=== PATIENT | female | born 1980 | race African-American/Black ===

== ENCOUNTER 2018-10-24 11:30 | Emergency (ER) | payer MEDICAID ==
[~2018-10-24] VITALS: Ht 167.6 cm; Wt 85.7 kg
[~2018-10-24 11:30] MED LIST: ALBUTEROL SULF8.5 GM INH; ATIVAN0.5 MG ORAL; AZITHROMYCIN250 MG ORAL; CIPRO500 MG PO; CLINDAMYCIN HC150 MG ORAL; IBUPROFEN600 MG ORAL; LEVAQUIN500 MG ORAL; NORCO 5-325 TA1 EACH ORAL; PREDNISONE20 MG ORAL; RANITIDINE HCL150 MG ORAL; TRAMADOL HCL50 MG ORAL; TYLENOL 8 HOUR650 M1 ORAL; VIGAMOX1 DROP LEFT EYE; ZYRTEC10 MG ORAL
[2018-10-24] MEDS ORDERED: NKM (11:40)
[2018-10-24 11:48] VITALS: BP 137/100
[2018-10-24] MEDS ORDERED: Isovue-300 100ml vial INJ PRN (12:15)
--- NOTE | 2018-10-24 12:46 | Emergency Room Report ---
History of Present Illness General Chief Complaint: Abdominal Pain Source: Patient Present Illness HPI Patient presents with different complaints initially complaining of diffuse abdominal cramping and pain with swelling reporting that she has previous history of diverticulitis Patient also later complains of left upper chest pain Left arm neuropathy Starting from the shoulder down to the hand This episode happened yesterday which has now resolved patient also later had experienced numbness to her left foot and lower leg That has also improved denies any headache denies any neck pain denies any other fall or trauma Patient also feels that intermittently her right knee gets swollen and improves with rest Denies any fevers denies any previous history of gonorrhea Allergies: Coded Allergies: HYDROCODONE (Verified Allergy, Unknown, ITCHING, 08/10/10) PENICILLINS (Verified Allergy, Unknown, AMBIGUOUS RXN, 08/13/10) Patient History Past Medical History: see triage record Reviewed Nursing Documentation: PMH: Agreed; PSxH: Agreed Nursing Documentation-PMH Hx Gastrointestinal Problems: Yes - diverticulitis Review of Systems All Other Systems: negative except mentioned in HPI Physical Exam Vital Signs Date Time Temp Pulse Resp B/P (MAP) Pulse Ox O2 Delivery O2 Flow Rate FiO2 10/24/18 11:38 98.4 87 15 126/86 (99) 99 Room Air Sp02 EP Interpretation: reviewed, normal General Appearance: well appearing, no apparent distress Head: normocephalic, atraumatic Eyes: bilateral eye PERRL, bilateral eye EOMI ENT: hearing grossly normal, normal pharynx, TMs + canals normal, uvula midline Neck: full range of motion, supple, no meningismus, no bony tend Respiratory: lungs clear, normal breath sounds, no rhonchi, no respiratory distress, no retraction, no accessory muscle use Cardiovascular #1: normal peripheral pulses, regular rate, rhythm, no edema, no gallop, no JVD, no murmur Gastrointestinal: normal bowel sounds, non tender - Subjectively points diffusely, soft, no mass, no organomegaly, non-distended, no guarding, no hernia , no pulsatile mass, no rebound Genitourinary: no CVA tenderness Musculoskeletal: normal inspection Neurologic: oriented x3, responsive, 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, motor strength/ tone normal, sensory intact Psychiatric: mood/affect normal Skin: no rash Lymphatic: normal inspection, no adenopathy Medical Decision Making Diagnostic Impression: Primary Impression: Abdominal pain ER Course With the patient's history and examination, multiple differentials considered, including but not limited to , ectopic , ovarian torsion, gastritis, cholecystitis, pancreatitis, appendicitis During her stay patient also complained of left upper chest pain EKG is normal patient's blood work is at appropriate levels CT imaging did not show any obvious acute pathology patient remains comfortable throughout her stay There are other nonspecific complaints that she has a right knee swelling and left arm neuropathy at this time my clinical evaluation does not reveal any obvious acute pathology and patient stable for close outpatient follow-up Labs Test 10/24/18 12:50 White Blood Count 7.3 K/UL (4.8-10.8) Red Blood Count 3.76 M/UL (4.20-5.40) Hemoglobin 12.0 G/DL (12.0-16.0) Hematocrit 36.8 % (37.0-47.0) Mean Corpuscular Volume 98 FL (80-99) Mean Corpuscular Hemoglobin 32.0 PG (27.0-31.0) Mean Corpuscular Hemoglobin Concent 32.8 G/DL (32.0-36.0) Red Cell Distribution Width 12.3 % (11.6-14.8) Platelet Count 287 K/UL (150-450) Mean Platelet Volume 5.9 FL (6.5-10.1) Neutrophils (%) (Auto) 60.8 % (45.0-75.0) Lymphocytes (%) (Auto) 28.5 % (20.0-45.0) Monocytes (%) (Auto) 7.7 % (1.0-10.0) Eosinophils (%) (Auto) 2.1 % (0.0-3.0) Basophils (%) (Auto) 1.0 % (0.0-2.0) Urine Color Pale yellow Urine Appearance Clear Urine pH 7 (4.5-8.0) Urine Specific [place] 1.010 (1.005-1.035) Urine Protein Negative (NEGATIVE) Urine Glucose (UA) Negative (NEGATIVE) Urine Ketones Negative (NEGATIVE) Urine Blood Negative (NEGATIVE) Urine Nitrite Negative (NEGATIVE) Urine Bilirubin Negative (NEGATIVE) Urine Urobilinogen Normal MG/DL (0.0-1.0) Urine Leukocyte Esterase Negative (NEGATIVE) Urine HCG, Qualitative Negative (NEGATIVE) Sodium Level 140 MMOL/L (136-145) Potassium Level 4.4 MMOL/L (3.5-5.1) Chloride Level 108 MMOL/L (98-107) Carbon Dioxide Level 25 MMOL/L (21-32) Anion Gap 7 mmol/L (5-15) Blood Urea Nitrogen 10 mg/dL (7-18) Creatinine 0.8 MG/DL (0.55-1.30) Estimat Glomerular Filtration Rate > 60 mL/min (>60) Glucose Level 101 MG/DL (74-106) Calcium Level 8.6 MG/DL (8.5-10.1) Total Bilirubin 0.2 MG/DL (0.2-1.0) Aspartate Amino Transf (AST/SGOT) 12 U/L (15-37) Alanine Aminotransferase (ALT/SGPT) 14 U/L (12-78) Alkaline Phosphatase 61 U/L (46-116) Total Protein 6.8 G/DL (6.4-8.2) Albumin 3.4 G/DL (3.4-5.0) Globulin 3.4 g/dL Albumin/Globulin Ratio 1.0 (1.0-2.7) Lipase 67 U/L (73-393) EKG Diagnostic Results Rate: normal Rhythm: NSR ST Segments: no acute changes Rhythm Strip Diag. Results EP Interpretation: yes Rate: 60 Rhythm: NSR, no PVC's, no ectopy Chest X-Ray Diagnostic Results Chest X-Ray Diagnostic Results : Chest X-Ray Ordered: Yes # of Views/Limited/Complete: 1 View Indication: Chest Pain EP Interpretation: Yes Interpretation: no consolidation, no effusion, no pneumothorax Impression: No acute disease Electronically Signed by: Sara Ortiz DO CT/MRI/US Diagnostic Results CT/MRI/US Diagnostic Results : Impression CT abdomen pelvis no acute disease Last Vital Signs Date Time Temp Pulse Resp B/P (MAP) Pulse Ox O2 Delivery O2 Flow Rate FiO2 10/24/18 11:48 98.4 78 15 137/100 100 Room Air Status: improved Disposition: HOME, SELF-CARE Condition: Improved Scripts Ibuprofen* (MOTRIN*) 600 Mg Tablet 600 MG ORAL Q8H PRN for For Pain, #20 TAB 0 Refills Prov: Sara Ortiz DO 10/24/18 Additional Instructions: Patient is provided with the discharge instructions notified to follow up with primary doctor in the next 2-3 days otherwise return to the er with any worsening symptoms. Please note that this report is being documented using [employer]AG[employer] technology. This can lead to erroneous entry secondary to incorrect interpretation by the dictating instrument. Sara Ortiz DO Oct 24, 2018 12:46
[2018-10-24 13:06] LABS: EOSINOPHILS % (AUTO) 2.1 % (0.0-3.0); HEMATOCRIT 36.8 % (37.0-47.0); LYMPHOCYTES % (AUTO) 28.5 % (20.0-45.0); MEAN CORPUSCULAR VOLUME 98 FL (80-99); MONOCYTES % (AUTO) 7.7 % (1.0-10.0); NEUTROPHILS % (AUTO) 60.8 % (45.0-75.0); PLATELET COUNT 287 K/UL (150-450); RED BLOOD COUNT 3.76 M/UL (4.20-5.40); RED CELL DISTRIBUTION WIDTH 12.3 % (11.6-14.8); WHITE BLOOD COUNT 7.3 K/UL (4.8-10.8)
[2018-10-24 13:11] LABS: APPEARANCE,URINE CLEAR; BILIRUBIN, URINE NEGATIVE (NEGATIVE); COLOR,URINE PALE YELLOW; GLUCOSE, URINE (UA) NEGATIVE (NEGATIVE); KETONES,URINE NEGATIVE (NEGATIVE); LEUKOCYTE ESTERASE ,URINE NEGATIVE (NEGATIVE); NITRITE,URINE NEGATIVE (NEGATIVE); PH,URINE 7 (4.5-8.0); PROTEIN,URINE NEGATIVE (NEGATIVE); UROBILINOGEN,URINE NORMAL MG/DL (0.0-1.0)
[2018-10-24 13:19] LABS: ANION GAP 7 mmol/L (5-15); BLOOD UREA NITROGEN 10 mg/dL (7-18); CALCIUM 8.6 MG/DL (8.5-10.1); CARBON DIOXIDE 25 MMOL/L (21-32); CHLORIDE 108 MMOL/L (98-107); CREATININE 0.8 MG/DL (0.55-1.30); POTASSIUM 4.4 MMOL/L (3.5-5.1); SODIUM 140 MMOL/L (136-145)
[2018-10-24 13:23] LABS: ALANINE AMINOTRANSFERASE 14 U/L (12-78); ALBUMIN 3.4 G/DL (3.4-5.0); ALKALINE PHOSPHATASE 61 U/L (46-116); ASPARTATE AMINO TRANSFERASE 12 U/L (15-37); BILIRUBIN,TOTAL 0.2 MG/DL (0.2-1.0)
[2018-10-24 13:45] VITALS: BP 128/90
--- NOTE | 2018-10-24 14:33 | Diagnostic Imaging Report ---
Clinical Indication: Abdominal pain and nausea and vomiting for 2 days Technique: No oral contrast utilized, per emergency room physician request IV administration nonionic contrast. Venous phase spiral acquisition obtained through the abdomen and pelvis. Multiplanar reconstructions were generated. Total dose length product 902.97 mGycm. CTDIvol(s) 17.25 mGy. Dose reduction achieved using automated exposure control Comparison: 08/15/2010 Findings: Normal appendix. There is colonic diverticulosis. No evidence of diverticulitis. No small bowel distention. No free or loculated intraperitoneal gas or fluid is evident. The distal esophagus, stomach, duodenum are unremarkable. The gallbladder, bile ducts, liver, pancreas, spleen, adrenals, kidneys are all unremarkable. There is incidental finding of a retroaortic left renal vein. No retroperitoneal or mesenteric mass or adenopathy. No pelvic mass or adenopathy. There is apparent bladder wall thickening, probably artifact of nondistention. The included lung bases are clear. The bones are unremarkable except for minimal degenerative changes of the lower lumbar spine. Compared to the previous exam, the findings at the lung bases have resolved. There is a 16 mm cyst in the right ovary. Uncertain as to whether this represents a new dominant follicle versus residua cyst demonstrated previously. There are are no other significant changes Impression: No acute abnormality Colonic diverticulosis. No evidence of diverticulitis. Incidental findings as noted This essentially agrees with the preliminary interpretation provided overnight by [facility]. The CT scanner at [facility] is accredited by the [employer] and the scans are performed using protocols designed to limit radiation exposure to as low as reasonably achievable to attain images of sufficient resolution adequate for diagnostic evaluation.
[2018-10-24] MEDS ORDERED: IBUPROFEN600 MG ORAL (14:45)
[2018-10-24 14:55] VITALS: BP 116/78
[2018-10-24] MEDS ORDERED: Ketorolac 30mg Inj IV ONE (15:00)
--- NOTE | 2018-10-25 10:46 | Diagnostic Imaging Report ---
Indication: Chest pain Technique: One view of the chest Comparison: 02/22/2015 Findings: Lungs and pleural spaces are clear. Heart size is normal. Impression: No acute process
--- NOTE | 2018-10-25 19:53 | Cardiology Report ---
APPROVED REPORT EKG Measurement Heart [id number] Normal sinus rhythm with sinus arrhythmia Nonspecific T wave abnormality Abnormal ECG
== END 2018-10-24 14:55 | disposition home or self-care (01) ==
LOC: EMR 14:55
DX: R10.9 Unspecified abdominal pain (principal); K57.90 Diverticulosis of intestine, part unspecified, without perforation or abscess without bleeding; Z88.6 Allergy status to analgesic agent; Z88.0 Allergy status to penicillin; G62.9 Polyneuropathy, unspecified; R07.9 Chest pain, unspecified
CPT/HCPCS: 36415; 71045; 74177; 80053; 81003; 81025; 83690; 85025; 93005; 99284; Q9967

== ENCOUNTER 2019-01-22 23:54 | Emergency (ER) | payer MEDICAID ==
[~2019-01-22] VITALS: Ht 167.6 cm; Wt 86.2 kg
[~2019-01-22 23:54] MED LIST changes: +NKM
--- NOTE | 2019-01-23 00:01 | Emergency Room Report ---
History of Present Illness General Chief Complaint: skin rash Source: Patient Present Illness HPI Patient is a 38-year-old female presents for increased skin rash. Patient reports having a itchy rash. Gradual onset. Intermittent in nature. Previous episodes similarly in the past. Denies any shortness of breath. Denies of any recent change in diet. States had onset of symptoms during use of energy drink. Denies any vomiting. Prior history of allergic urticaria.No known exacerbating factors. Allergies: Coded Allergies: HYDROCODONE (Verified Allergy, Unknown, ITCHING, 08/10/10) PENICILLINS (Verified Allergy, Unknown, AMBIGUOUS RXN, 08/13/10) Patient History Past Medical History: see triage record Reviewed Nursing Documentation: PMH: Agreed; PSxH: Agreed Nursing Documentation-PMH Hx Gastrointestinal Problems: Yes - diverticulitis Review of Systems All Other Systems: negative except mentioned in HPI Physical Exam Sp02 EP Interpretation: reviewed, normal General Appearance: normal inspection, well appearing, no apparent distress, alert, GCS 15, non-toxic, obese Head: atraumatic ENT: normal ENT inspection, hearing grossly normal, normal voice Neck: normal inspection, full range of motion, supple, no bony tend Respiratory: normal inspection, lungs clear, normal breath sounds, no respiratory distress, no retraction, no wheezing Cardiovascular #1: regular rate, rhythm, no edema Gastrointestinal: normal inspection, normal bowel sounds, non tender, soft, no guarding, no hernia Genitourinary: no CVA tenderness Musculoskeletal: normal inspection, back normal, normal range of motion Neurologic: normal inspection, alert, oriented x3, responsive, 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 Differential diagnosis include was not limited to allergic reaction, arrhythmia, niacin toxicity among others. Patient has a benign exam and does not appear to require any imaging or laboratory testing at this time.Patient appears to have some skin reaction which may be related to the denies incontinent of the energy drink she was drinking. She also appears to have some slight agitation which is likely related to excessive caffeine at this time. Patient does not appear to require any laboratory testing or medical treatment at this time. She is advised to abstain from caffeine. She is given prescription for Benadryl. Advised to return if worse.The patient is advised to follow up with primary care doctor in 1-2 days. Patient is advised to return if any worsening condition or if any changes in status that are concerning. This report is dictated with [employer] cranberry grower software which may occasionally lead to discrepancies related to use of this software. EKG Diagnostic Results Rate: bradycardiac Status: improved Disposition: HOME, SELF-CARE Condition: Stable Scripts Diphenhydramine Hcl (BENADRYL ALLERGY) 25 Mg Tablet 25 MG PO EVERY 6 HOURS, #30 TAB Prov: Jermaine Galloway MD 01/23/19 Jermaine Galloway MD Jan 23, 2019 00:01
--- NOTE | 2019-01-23 00:15 | NUR ---
ED Nurse Note: Recieved pt from home, here with c/o feeling gittery and possible allergic reaction after drinking energy drink, pt is speaking very fast, denies cp, sob, any pain or other complaints or discomforts, md at bedside will resume care as ordered.
[2019-01-23] MEDS ORDERED: BENADRYL ALLERG25 M1 PO (00:39)
[2019-01-23 00:40] VITALS: BP 128/85
[2019-01-23 00:45] VITALS: BP 128/85
--- NOTE | 2019-01-23 00:45 | NUR ---
ER DISCHARGE NOTE: Patient is cleared to be discharged per ERMD, pt is aox4, on room air, with stable vital signs. pt was given dc and prescription instructions, pt was able to verbalize understanding, pt id band removed without complications. pt is able to ambulate with steady gait. pt took all belongings.
== END 2019-01-23 00:45 | disposition home or self-care (01) ==
LOC: EMR 23:59
DX: L50.9 Urticaria, unspecified (principal); R00.1 Bradycardia, unspecified; Z88.0 Allergy status to penicillin; Z88.6 Allergy status to analgesic agent
CPT/HCPCS: 99282